=== PATIENT | female | born 1955 | race African-American/Black ===

== ENCOUNTER 2021-06-03 13:19 | Observation (INO) | payer BC ==
[~2021-06-03] VITALS: Ht 170.2 cm; Wt 164.5 kg
[2021-06-03 14:46] LABS: BASO # 0.1 K/mm3 (0.0-0.2); BASO % 0.6 % (0.0-2.0); EOS % 0.1 % (0-4.0); GRAN # 8.1 K/mm3 (1.4-6.5); HEMATOCRIT 43.8 % (37.0-47.0); HEMOGLOBIN 14.4 g/dl (12.5-16.0); LYMPH # 1.3 K/mm3 (1.2-3.4); MEAN CELL VOLUME 85 fl (80.0-100.0); MEAN CORPUSCULAR HEMOGLOBIN 28 pg (27.0-31.0); MEAN CORPUSCULAR HGB CONC 33 g/dl (33.0-37.0); MONO # 0.6 K/mm3 (0.1-0.6); PLATELET COUNT 419 K/mm3 (130-400); RED BLOOD COUNT 5.17 M/mm3 (4.10-5.30); REDCELL DISTRIBUTION WIDTH-CV 15.4 % (11.5-14.5)
[2021-06-03 15:01] LABS: ALBUMIN 4.4 gm/dL (3.4-4.8); BILIRUBIN,TOTAL 1.9 mg/dL (0.2-1.2); C-REACTIVE PROTEIN 1.51 mg/dL (0.00-0.50); CALCIUM 9.5 mg/dL (8.4-10.2); CREATININE, serum 0.81 mg/dL (0.57-1.11); TOTAL PROTEIN 8.1 gm/dL (6.2-8.1)
[2021-06-03] MEDS ORDERED: GLUMETZA500 MG PO (16:23)
[2021-06-03 23:04] VITALS: BP 124/61; PULSE 86; TEMP 98.7
--- NOTE | 2021-06-03 23:04 | NUR ---
Patient arrived room 357 via hospital bed from ER around 2200. Patient alert and oriented. Patient reports moderate RUQ abd pain radiating to her lower back and leg pain. PRN pain med given per MAR. Clear liquid diet provided per order. Informed patient of NPO from midnight for ERCP procedure tomorrow. Patient verbalized understanding. IVF infusing well per MAR. Assisted patient to use bathroom to void. Stand by assist provided. Consent for procedure signed. Oriented patient to the room. Call light in reach. Will continue to monitor.
[2021-06-04] VITALS (8 sets, daily range): BP systolic 126–142; BP diastolic 53–83; PULSE 81–90; TEMP 97.6–99
--- NOTE | 2021-06-04 05:30 | NUR ---
NPO maintained from midnight for ERCP procedure today. Patient independent in the room. Call light in reach. Will continue to monitor.
[2021-06-04 07:01] LABS: BASO % 0.7 % (0.0-2.0); EOS # 0.1 K/mm3 (0.0-0.7); EOS % 1.8 % (0-4.0); GRAN # 3.5 K/mm3 (1.4-6.5); GRAN % 62.9 % (42.2-75.2); LYMPH # 1.4 K/mm3 (1.2-3.4); LYMPH % 24.9 % (20.0-51.0); MEAN CELL VOLUME 85 fl (80.0-100.0); MEAN CORPUSCULAR HGB CONC 33 g/dl (33.0-37.0); MEAN PLATELET VOLUME 10.1 fl (7.4-10.4); MONO # 0.5 K/mm3 (0.1-0.6); MONO % 9.3 % (1.7-9.3); RED BLOOD COUNT 4.46 M/mm3 (4.10-5.30); REDCELL DISTRIBUTION WIDTH-CV 15.6 % (11.5-14.5)
[2021-06-04 07:10] LABS: MEAN CORPUSCULAR HEMOGLOBIN 28 pg (27.0-31.0)
[2021-06-04 07:11] LABS: HEMOGLOBIN 12.4 g/dl (12.5-16.0)
[2021-06-04 07:12] LABS: PLATELET COUNT 319 K/mm3 (130-400)
[2021-06-04 07:19] LABS: ALBUMIN 3.6 gm/dL (3.4-4.8); BILIRUBIN,TOTAL 1.7 mg/dL (0.2-1.2); CALCIUM 8.4 mg/dL (8.4-10.2); CREATININE, serum 0.75 mg/dL (0.57-1.11); POTASSIUM 3.6 mmol/L (3.5-4.5); TOTAL PROTEIN 6.4 gm/dL (6.2-8.1)
--- NOTE | 2021-06-04 08:12 | NUR ---
PT ASSESSED. NO COMPLAINTS OF PAIN OR DYSPNEA. NO SIGNS OR SYMPTOMS OF DISTRESS. CALL LIGHT WITHIN REACH
--- NOTE | 2021-06-04 13:40 | NUR ---
Initial visit; Christie remembers Reconciliation Manager ministering to her mother five years ago. Following her mother's two more of her family members passed. 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 Reconciliation Manager will see Christie before she is discharged.
--- NOTE | 2021-06-04 15:55 | NUR ---
group worker met with patient to discuss discharge plan. Patient reports that she lives at home alone in [place]. Patient reports that at home she is fully independed with her activities of daily living and does not utilize any DME to assist with mobility. Patient reports to no oxygn needs at home. PCP is Dr. Dustin Nelson ([phone]) at [facility] in [place] and she utilizes [facility] for perscription needs with no cost difficulty. Patient reports to having a Will established and that her DPOA-HC is included but doesn't have a copy of it with her. Patient does have a grown daughter Areale ([phone]) who is states is her agent along with her father. Once ready, patient is planning on returning home with no concerns. Discharge plan: Home
--- NOTE | 2021-06-04 23:38 | NUR ---
Patient sitting up in bed upon enter the room. Patient pleasant, A/Ox4. Patient states feeling a little nauseous and requesting nausea med. PRN Zofran given per AUG. NS running at 125ml/hr via right hand IV site. IV site C/D/I. Informed patient of NPO from midnight for procedure tomorrow. Patient verbalized understanding. Call light in reach. Will continue to monitor.
[2021-06-05] VITALS (12 sets, daily range): BP systolic 128–149; BP diastolic 55–96; PULSE 76–87; TEMP 97.4–98.5
--- NOTE | 2021-06-05 06:16 | NUR ---
Patient remained NPO from midnight. PRN pain med given x2 for c/o abd pain. Consent signed for robotic cholecystectomy today. Call light in reach.
--- NOTE | 2021-06-05 09:57 | NUR ---
PT ASSESSED. NO COMPLAINTS OF PAIN OR NAUSEA. NO SIGNS OR SYMPTOMS OF DISTRESS. CALL LIGHT WITHIN REACH. CONSENT FOR SURGERY SIGNED.
--- NOTE | 2021-06-05 10:31 | NUR ---
Follow-up; Christie thanked Custom Tailor for bringing her a cross and offering God's blessings.
[2021-06-05] MEDS ORDERED: ULTRAM 50MG TAB50 MG PO (12:36)
--- NOTE | 2021-06-05 19:36 | NUR ---
Discharged patient- patient given discharge instructions, denies pain, denies questions, assisted out in wheelchair by WIRE HANGER.
== END 2021-06-05 19:36 | disposition home or self-care (01) ==
LOC: COL.ER 13:19 → MEDICAL 16:06
PROVIDERS: Physician Assistant; ADMIT Surgery
DX: K81.0 Acute cholecystitis (principal); E11.9 Type 2 diabetes mellitus without complications; Z79.84 Long term (current) use of oral hypoglycemic drugs
CPT/HCPCS: C1769; G0378; J0690; J1200; J1885; J1956; J2405; J2550; J2704; J3010; J7030; J7120; Q9967

== ENCOUNTER 2022-08-18 08:37 | Outpatient (RCR) | payer BC ==
[~2022-08-18 08:37] MED LIST: GLUMETZA500 MG PO; ULTRAM 50MG TAB50 MG PO
== END 2022-08-18 08:38 ==
LOC: MKS.ESL.PT 08:37
DX: I89.0 Lymphedema, not elsewhere classified (principal); R26.89 Other abnormalities of gait and mobility